=== PATIENT | female | born 1985 | race Caucasian/White ===

== ENCOUNTER 2017-05-21 10:30 | Emergency (ER) | payer MEDICAID ==
[~2017-05-21] VITALS: Ht 167.6 cm; Wt 72.0 kg
[~2017-05-21 10:30] MED LIST: FERR27TA; PREN1TAB49
[2017-05-21 10:37] VITALS: Ht 167.6 cm; Wt 72.0 kg
--- NOTE | 2017-05-21 11:53 | RADRPT ---
PROCEDURE: Chest x-ray CLINICAL INDICATION: Back pain TECHNIQUE: Chest single view COMPARISON: None FINDINGS: The heart is normal in size. The pulmonary vessels are normal in caliber. The lungs are clear. Th e costophrenic angles are sharp. The visualized bony thorax is unremarkable. IMPRESSION: No acute cardiopulmonary disease. RPTAT: HH .Anant Rogers MD, Date Time Electronically viewed and signed by .Anant Rogers MD, MD on 05/21/2017 11:53 .W/
[2017-05-21 12:32] LABS: URINE BLOOD (Dip) POC Negative (NEGATIVE)
[2017-05-21] MEDS ORDERED: IBUP-1542 PO (12:45)
[2017-05-21] MEDS ORDERED: CYCL-319 PO (12:45)
--- NOTE | 2017-05-21 12:58 | ERD ---
ER Documentation Chief Complaint Date/Time DATE: 05/21/17 TIME: 12:54 Chief Complaint pt bib self with c/o back pain since standing in line on sunday, HPI This 31-year-old female presents with upper back pain. Started on Sunday after she was standing for an hour . She had to hold her child. Her pain is in the left upper back. She denies any acute trauma or fall. She denies any urinary complaints, fevers, shortness of breath, hemoptysis. ROS All systems reviewed and are negative except as per history of present illness. Medications Home Meds Active Scripts Cyclobenzaprine Hcl* (Cyclobenzaprine Hcl*) 10 Mg Tablet, 10 MG PO TID, #15 TAB Prov:RENITA ANTOINE MD 05/21/17 Ibuprofen* (Motrin*) 600 Mg Tab, 600 MG PO Q6, #20 TAB Prov:RENITA ANTOINE MD 05/21/17 Reported Medications Ferrous Sulfate (Iron) 1 Tab Tablet 08/18/10 Vits W-Ca,Fe,Fa(<1MG) () 1 Tab Tablet 08/18/10 Allergies Allergies: Coded Allergies: No Known Drug Allergies (Verified Allergy, Mild, 01/26/15) PMhx/Soc Medical and Surgical Hx: pt denies Medical Hx, pt denies Surgical Hx History of Surgery: No Anesthesia Reaction: No Hx Neurological Disorder: No Hx Respiratory Disorders: No Hx Cardiac Disorders: No Hx Psychiatric Problems: No Hx Miscellaneous Medical Probl: No Hx Alcohol Use: No Hx Substance Use: No Hx Tobacco Use: No Smoking Status: Never smoker Physical Exam Vitals Vital Signs Date Time Temp Pulse Resp B/P Pulse Ox O2 Delivery O2 Flow Rate FiO2 05/21/17 10:37 97.3 79 16 130/81 96 Physical Exam Const: [], [id number]. Head: Atraumatic Eyes: Normal Conjunctiva ENT: Normal External Ears, Nose and Mouth. Neck: Full range of motion..~ No meningismus. Resp: Clear to auscultation bilaterally Cardio: Regular rate and rhythm, no murmurs Abd: Soft, non tender, non distended. Normal bowel sounds Skin: No petechiae or rashes Back: No midline or flank tenderness. Tender in the left upper back and the interscapular area. No bony tenderness or deformities. No exquisite CVA tenderness. Ext: No cyanosis, or edema Neur: Awake and alert Psych: Normal Mood and Affect Results 24 hrs Laboratory Tests Test 05/21/17 12:39 Bedside Urine pH (LAB) 5.5 Bedside Urine Protein (LAB) Negative Bedside Urine Glucose (UA) Negative Bedside Urine Ketones (LAB) Negative Bedside Urine Blood Negative Bedside Urine Nitrite (LAB) Positive Bedside Urine Leukocyte Esterase (L Negative Procedures/MDM Urine shows nitrites but no other acute findings. Urine was sent for culture Chest X-ray 1V Interpreted by me: Soft Tissue: No acute abnormalities Bones: No acute abnormalities Mediastinum/Cardiac Silhouette/Lungs: [No acute abnormalities]. Impression- normal 1 view chest x-ray Patient presents with left upper pain back pain after standing and holding her child. Signs or symptoms are most consistent with musculoskeletal strain or thoracic strain. We will defer treatment for UTI until urine culture as I doubt these are the cause of her symptoms. She should however return for fevers , vomiting, hemoptysis, migration pain, new worsening symptoms. Otherwise recommend rest and stretching at home and will treat with ibuprofen and Flexeril. The patient was stable with no new complaints during the ER course. Clinically, there is no current evidence to suggest meningitis, sepsis, acute abdomen, pneumonia, acute coronary syndrome, pulmonary embolism, or any other emergent condition appearing to require further evaluation or hospitalization. The patient should certainly return for any new or worsening symptoms per the aftercare instructions. They should otherwise follow-up with her primary care doctor for reevaluation this week. Departure Diagnosis: Primary Impression: Back pain Back pain location: thoracic back pain Chronicity: acute Back pain laterality: left Qualified Code: M54.6 - Acute left-sided thoracic back pain Condition: Stable Patient Instructions: Thoracic Strain Additional Instructions: X-ray normal. Urine shows no signs of significant infection. Urine sent for culture. Recommend stretching at home. Recheck for fevers, vomiting, blood, new worsening symptoms. Likely musculoskeletal strain. RENITA ANTOINE MD May 21, 2017 12:58
== END 2017-05-21 13:31 | disposition home or self-care (01) ==
LOC: FTE 10:30
DX: M54.6 Pain in thoracic spine (principal)
CPT/HCPCS: 71010; 81003; 87086; Z7502